=== PATIENT | female | born 1970 | race African-American/Black ===

== ENCOUNTER 2017-08-01 17:38 | Emergency (ER) | payer SELFPAY ==
[~2017-08-01] VITALS: Ht 165.1 cm; Wt 85.0 kg
[~2017-08-01 17:38] MED LIST: HYDR50TA94 PO; HYDRO2.5%T TOP; PERM5CRE4 TOP
[2017-08-01 17:49] VITALS: BP 188/100; PULSE 80; RESP 20; TEMP 98.2; O2SAT 100
--- NOTE | 2017-08-01 17:49 | PD ---
Physical Exam Time Seen by Provider: 17:46 Narrative 47yo F c/o left temporal DIEZ since about 2pm. Took BC powder w/ no relief. Says she gets DIEZ when her BP is high. She just took her BP medication right before she came; ddi not take it this morning as scheduled. Denies vomiting. Patient seen in triage. VS reviewed. Awaiting bed placement. MDM Supervised Visit with AZALIA: Hazel Echols Aug 01, 2017 17:49
== END 2017-08-01 23:44 | disposition left against medical advice (07) ==
LOC: NED 17:38
DX: R51 Headache (principal); Z53.21 Procedure and treatment not carried out due to patient leaving prior to being seen by health care provider
CPT/HCPCS: 99281